=== PATIENT | female | born 1975 | race Caucasian/White ===

== ENCOUNTER 2017-07-10 04:58 | Emergency (ER) | payer OTHER ==
[~2017-07-10] VITALS: Ht 142.2 cm; Wt 79.4 kg
[~2017-07-10 04:58] MED LIST: BENADRYL PO; CIPRO PO; COLACE PO; COQ10-VIT E 101 EACH; DETROL LA PO; FLOMAX0.4 M1 PO; LIPITOR PO; MACROBID100 M1 PO; PAXIL30 MG PO; PERCOCET5/325 PO; VITAMIN D 22000 UNIT; ZOFRAN ODT4 MG/UDTAB PO
[2017-07-10] MEDS ORDERED: MEDROL DOSEPAK4 MG (05:05)
[2017-07-10] MEDS ORDERED: AZITHROMYCIN500 MG (05:05)
[2017-07-10] MEDS ORDERED: FLAGYL (05:06)
== END 2017-07-10 05:58 | disposition home or self-care (01) ==
LOC: SED 04:58
DX: L29.9 Pruritus, unspecified (principal); T50.995A Adverse effect of other drugs, medicaments and biological substances, initial encounter; Z79.899 Other long term (current) drug therapy; Z88.0 Allergy status to penicillin; Z88.5 Allergy status to narcotic agent; Z88.2 Allergy status to sulfonamides; Z88.1 Allergy status to other antibiotic agents; Z88.8 Allergy status to other drugs, medicaments and biological substances
CPT/HCPCS: 96372; 99282; J1885